=== PATIENT | female | born 1955 | race Caucasian/White ===

== ENCOUNTER → 2016-11-16 | Outpatient (CLI) | payer BC ==
[~2016-11-16] MED LIST: GADOBUTROL 7.5 MMOL/7.5 ML (GADAVIST) VIAL IV ONE
[2016-11-16 12:42] LABS: BLOOD UREA NITROGEN 22 MG/DL (7-18); BUN/CREATININE RATIO 27; CREATININE SERUM 0.83 MG/DL (0.60-1.30); GFR ESTIMATED > 60
--- NOTE | 2016-11-16 14:33 | Diagnostic Imaging Report ---
PROCEDURE: MRI right joint lower extremity with and without contrast. TECHNIQUE: Multiplanar, multisequence pre and post contrast-enhanced MARLIN of the right knee joint was accomplished. INDICATION: Swelling along the medial aspect of the left knee. 7 mL of Gadovist is administered intravenously. FINDINGS: There is a prominent amount of subcutaneous fat seen in the medial aspect of the knee without a definitive capsule identified. This might be related to an area of lipomatosis involving the subcutaneous fat or underlying lipoma with undiscernible borders from the rest of the subcutaneous tissues. This does not extend into the underlying muscular layer. For comparison, the maximum depth of the subcutaneous fat density along the medial aspect of the knee is 2.9 cm compared to 1.4 cm laterally. There is no enhancing mass identified. There is a tiny Davies's cyst present extending over an area measuring 1.9 x 1 x 2 cm. The muscles around the knee have normal bulk and signal. The bone marrow signal is within normal limits. The extensor mechanism is normal. The ACL and the PCL are both normal. There is increased signal in the posterior horn of the medial meniscus with slight extension into the undersurface of the meniscus suggestive of a nondisplaced tear. The body of the meniscus demonstrates increased signal without definite tear likely related to degeneration. The anterior horn appears intact. The lateral meniscus also appears intact. The MCL and the lateral collateral ligament complex are intact. There is no joint effusion. The joint cartilage demonstrates minimal narrowing of the medial compartment and appears preserved in the lateral and patellofemoral compartments. IMPRESSION: 1. There is thickening in the subcutaneous fat along the medial aspect of the knee without defined borders suggestive of lipomatosis, or perhaps a lipoma without obvious interface it from the rest of the subcutaneous fat. 2. Small Davies's cyst. 3. Degenerative signal in the medial meniscus with suggestion of a posterior horn nondisplaced focal tear. Dictated by: Dictated on workstation # [id number]
== END ==
LOC: RAD 12:09
PROVIDERS: ATTEND Surgery
DX: M71.22 Synovial cyst of popliteal space [Baker], left knee (principal)
CPT/HCPCS: 36415; 73723; 82565; 84520

== ENCOUNTER → 2017-02-07 | Outpatient (CLI) | payer BC ==
--- NOTE | 2017-02-07 19:20 | Diagnostic Imaging Report ---
INDICATION: Bilateral screening mammogram. This study was compared to the prior exams of 02/02/16, 01/28/15 and 01/15/14. At this time, there are no current complaints. The current study was also evaluated with a Computer Aided Detection (CAD) system. FINDINGS: There are scattered fibroglandular densities in both breasts which could obscure a lesion. Overall, there does not appear to have been any significant change when compared to the prior exam. No primary or secondary sign of malignancy is noted. IMPRESSION: There is no radiographic evidence for malignancy. ACR BI-RADS Category 1: Negative. Result letter will be mailed to the patient. Note: At least 10% of breast cancer is not imaged by mammography. Dictated by: Dictated on workstation # [id number]
== END ==
LOC: RAD 10:51
PROVIDERS: ATTEND Obstetrics & Gynecology
DX: Z12.31 Encounter for screening mammogram for malignant neoplasm of breast (principal)
CPT/HCPCS: 77067

== ENCOUNTER → 2017-03-22 | Outpatient (CLI) | payer BC ==
--- NOTE | 2017-03-22 13:16 | Diagnostic Imaging Report ---
PA and lateral views of the chest. INDICATION: Cough. FINDINGS: The lungs are hyperinflated with minimal atelectasis or scarring in the left lung base. The heart size is normal. There is no effusion or pneumothorax. The mediastinum and kadi appear unremarkable. IMPRESSION: Hyperinflated lungs. Minimal atelectasis or scarring at the left lung base. Dictated by: Dictated on workstation # [id number]
== END ==
LOC: RAD 09:15
PROVIDERS: ATTEND Family Medicine
DX: R05 Cough (principal)
CPT/HCPCS: 71020

== ENCOUNTER → 2019-03-05 | Outpatient (CLI) | payer MEDICARE, OTHER ==
--- NOTE | 2019-03-05 12:11 | Diagnostic Imaging Report ---
INDICATION: Screening. TECHNIQUE: The current study was also evaluated with a Computer Aided Detection (CAD) system. 3D tomographic imaging was also performed. COMPARISON: 02/26/2018, 02/07/2017, and 02/02/2016. FINDINGS: There are scattered fibroglandular densities bilaterally. There are a few benign type calcifications. There is no dominant mass, spiculated lesion, or suspicious calcifications identified. The skin, nipples, and axillae are unremarkable. IMPRESSION: Benign findings. ACR BI-RADS Category 2: Benign findings. Result letter will be mailed to the patient. Note: At least 10% of breast cancer is not imaged by mammography. Dictated by: Dictated on workstation # [id number]
== END ==
LOC: RAD 09:59
PROVIDERS: ATTEND Obstetrics & Gynecology
DX: Z12.31 Encounter for screening mammogram for malignant neoplasm of breast (principal)
CPT/HCPCS: 77067

== ENCOUNTER → 2020-03-09 | Outpatient (CLI) | payer MEDICARE, OTHER ==
--- NOTE | 2020-03-09 13:59 | Diagnostic Imaging Report ---
PROCEDURE: US Thyroid. TECHNIQUE: Multiple Real-time grayscale images were obtained of the thyroid in various projections. INDICATION: Thyroid nodule. FINDINGS: The prior thyroid ultrasound exam of 06/25/2014 noted post surgical changes consistent with a right thyroidectomy. There were several subcentimeter nodules within the left lobe. None of these nodules measured greater than 1 cm in size. On this exam, the overall appearance of the left lobe of the thyroid does not seem to have changed significantly. There are still several subcentimeter nodules in each lobe. The left lobe of the thyroid is not enlarged measuring 4.0 x 0.9 x 1.3 cm (normal gland size 4-5 x 2 x 2 cm or less). There is no evidence for any recurrent thyroid tissue in the bed of the right lobe of the thyroid. IMPRESSION: The appearance of the thyroid gland is stable when compared to the prior study. There are still several subcentimeter nodules in the left lobe of the thyroid. There is no evidence for recurrent thyroid tissue in the right thyroid bed. Dictated by: Dictated on workstation # [id number]
== END ==
LOC: RAD 10:04
PROVIDERS: ATTEND Family Medicine
DX: E04.1 Nontoxic single thyroid nodule (principal)
CPT/HCPCS: 76536

== ENCOUNTER → 2020-03-09 | Outpatient (CLI) | payer MEDICARE, OTHER ==
--- NOTE | 2020-03-09 16:52 | Diagnostic Imaging Report ---
EXAMINATION: Digital mammogram bilateral screening with CAD. INDICATION: Screening. COMPARISON: This study is compared to the prior exams of 03/05/2019, 02/26/2018, and 02/07/2017. PERSONAL HISTORY: At this time, there are no current complaints. FINDINGS: The breasts are predominantly fatty. When compared to the prior study, there has been no significant change. There is no primary or secondary sign of malignancy noted. IMPRESSION: There is no evidence for malignancy. ACR BI-RADS Category 1: Negative. Result letter will be mailed to the patient. Note: At least 10% of breast cancer is not imaged by mammography. Dictated by: Dictated on workstation # [id number]
== END ==
LOC: RAD 10:06
PROVIDERS: ATTEND Obstetrics & Gynecology
DX: Z12.31 Encounter for screening mammogram for malignant neoplasm of breast (principal)
CPT/HCPCS: 77063; 77067

== ENCOUNTER → 2021-03-10 | Outpatient (CLI) | payer MEDICARE, OTHER ==
--- NOTE | 2021-03-10 15:41 | Diagnostic Imaging Report ---
INDICATION: Routine screening. COMPARISON is made with prior mammograms 03/09/2020 and 03/05/2019. 2-D and 3-D bilateral screening mammography was performed with CAD. Scattered fibroglandular densities are identified bilaterally. A nodular density in the right breast just medial to the nipple line at mid depth is noted and more prominent on today's study. This is not well-visualized on the MLO view. No other masses are seen. There are benign calcifications. No malignant appearing microcalcifications are identified. Axillae are unremarkable. IMPRESSION: BI-RADS Category 0. Right breast density. Additional views are recommended for further evaluation. ACR BI-RADS Category 0: Incomplete. (Needs additional imaging evaluation). Result letter will be mailed to the patient. Note: At least 10% of breast cancer is not imaged by mammography. Dictated by: Dictated on workstation # [id number]
== END ==
LOC: RAD 11:16
PROVIDERS: ATTEND Obstetrics & Gynecology
DX: Z12.31 Encounter for screening mammogram for malignant neoplasm of breast (principal)
CPT/HCPCS: 77063; 77067

== ENCOUNTER → 2021-03-17 | Outpatient (CLI) | payer MEDICARE, OTHER ==
--- NOTE | 2021-03-17 14:09 | Diagnostic Imaging Report ---
Indication: Right breast density. Patient presents for additional views. Correlation is made with prior mammogram from 03/10/2021. Unilateral right 2-D and 3-D diagnostic mammography was performed with CAD. Is included spot compression CC, rolled CC as well as conventional 90 degrees lateral views. Additional views fail to demonstrate a discrete mass. Area of density noted on screening mammogram most likely represented superimposed tissue. No mass or malignant appearing microcalcifications are seen. IMPRESSION: BI-RADS Category 1 Additional views fail to demonstrate a discrete mass. The patient may return to routine annual screening mammography. ACR BI-RADS Category 1: Negative. Result letter will be mailed to the patient. Note: At least 10% of breast cancer is not imaged by mammography. Dictated by: Dictated on workstation # [id number]
== END ==
LOC: RAD 13:45
PROVIDERS: ATTEND Obstetrics & Gynecology
DX: R92.2 Inconclusive mammogram (principal)
CPT/HCPCS: 77065; G0279

== ENCOUNTER → 2022-03-13 | Outpatient (CLI) | payer MEDICARE, OTHER ==
--- NOTE | 2022-03-14 08:23 | Diagnostic Imaging Report ---
3D bilateral INDICATION: Screening mammogram with CAD. CAD is utilized. The current study was also evaluated with a Computer Aided Detection (CAD) system. This study was compared to the prior exams as far back as 02/26/2018. At this time there are no current complaints. The current study was also evaluated with a Computer Aided Detection (CAD) system. FINDINGS: There are scattered fibroglandular densities in both breasts which could obscure a lesion. Overall, there does not appear to have been any significant change when compared to the prior exam. No primary or secondary sign of malignancy is noted. IMPRESSION: There is no radiographic evidence for malignancy. ACR category 1 ACR BI-RADS Category 1: Negative. Result letter will be mailed to the patient. Note: At least 10% of breast cancer is not imaged by mammography. Dictated by: Dictated on workstation # [id number]
== END ==
LOC: RAD 11:15
PROVIDERS: ATTEND Obstetrics & Gynecology
DX: Z12.31 Encounter for screening mammogram for malignant neoplasm of breast (principal)
CPT/HCPCS: 77063; 77067

== ENCOUNTER → 2023-03-28 | Outpatient (CLI) | payer MEDICARE, OTHER ==
--- NOTE | 2023-03-28 13:37 | Diagnostic Imaging Report ---
INDICATION: Routine screening. COMPARISON: 03/13/2022 and 03/10/2021. TECHNIQUE: 2D and 3D bilateral screening mammography was performed with CAD. FINDINGS: Scattered fibroglandular densities are identified bilaterally. The bilateral breast densities appear stable. No spiculated mass or malignant-appearing microcalcifications are seen. The axillae are unremarkable. IMPRESSION: No mammographic features suspicious for malignancy are identified. ACR BI-RADS Category 2: Benign findings. Result letter will be mailed to the patient. Note: At least 10% of breast cancer is not imaged by mammography. Dictated by: Dictated on workstation # [id number]
== END ==
LOC: RAD 09:55
PROVIDERS: ATTEND Obstetrics & Gynecology
DX: Z12.31 Encounter for screening mammogram for malignant neoplasm of breast (principal)
CPT/HCPCS: 77063; 77067